=== PATIENT | female | born 1985 | race American Indian/Alaskan Native ===

== ENCOUNTER 2018-08-20 18:23 | Emergency (ER) | payer OTHER ==
[2018-08-20] MEDS ORDERED: Bacitracin Oint 1 GM U/D Packet TOP ONE (19:40)
[2018-08-20] MEDS ORDERED: Diphtheria,Pertussis(Acell),Tetanus Vaccine 0.5 ML SDV IM ONE (19:40)
[2018-08-20] MEDS ORDERED: Lidocaine 1% 30 ML SDV INJECT ONE (19:40)
--- NOTE | 2018-08-20 19:56 | EDM.PDOC ---
ED HPI GENERAL MEDICAL PROBLEM - General Chief Complaint: Laceration Stated Complaint: W/COMP - CUT TO RT FOREARM Time Seen by Provider: 08/20/18 19:40 Source of Information: Reports: Patient History Limitations: Reports: No Limitations - History of Present Illness INITIAL COMMENTS - FREE TEXT/NARRATIVE: This 32 yo female patient reports to the ED from work ([employer]) with a laceration to her right forearm. The patient reports she was grabbing a rag by a garbage when she believes a piece of broken glass cut her arm from the garbage. Onset: Today Duration: Minutes: Location: Reports: Upper Extremity, Right Severity: Mild Improves with: Reports: None Worsens with: Reports: None Associated Symptoms: Reports: No Other Symptoms - Related Data Allergies Allergy/AdvReac Type Severity Reaction Status Date / Time No Known Allergies Allergy Verified 08/20/18 18:54 Home Meds: Home Meds . [No Known Home Meds] 08/20/18 [History] Past Medical History - Past Surgical History HEENT Surgical History: Reports: Myringotomy w Tube(s) Social & Family History - Tobacco Use Smoking Status *Q: Never Smoker Second Hand Smoke Exposure: No - Caffeine Use Caffeine Use: Reports: Soda - Recreational Drug Use Recreational Drug Use: No ED ROS GENERAL - Review of Systems Review Of Systems: ROS reveals no pertinent complaints other than HPI. ED EXAM, SKIN/RASH Exam: See Below General Appearance: Alert, WD/WN, No Apparent Distress Eye Exam: Bilateral Eye: EOMI, PERRL Ears: Normal External Exam, Hearing Grossly Normal Nose: Normal Inspection Head: Atraumatic, Normocephalic Neck: Full Range of Motion Respiratory/Chest: No Respiratory Distress Cardiovascular: Normal Peripheral Pulses, Regular Rate, Rhythm (Female) Exam: Deferred Rectal (Female) Exam: Deferred Extremities: Normal Range of Motion, No Pedal Edema, Normal Capillary Refill, Other (laceratio to right forearm) Neurological: Alert, Oriented, CN II-XII Intact, Normal Cognition, Normal Gait Psychiatric: Normal Affect, Normal Mood Skin: Warm, Dry, Normal Color, No Rash Location, Skin: Upper Extremity, Right Characteristics: Linear Lymphatic: No Adenopathy ED SKIN PROCEDURES - Laceration/Wound Repair Right Distal Arm Lac/Wound length In cm: 2.0 Appearance: Subcutaneous Distal NVT: Neuro & Vascular Intact Anesthetic Type: Local Local Anesthesia - Lidocaine (Xylocaine): 1% Plain Local Anesthetic Volume: 3cc Skin Prep: Chlorhexidine (Hibiciens) Exploration/Debridement/Repair: Wound Explored, In a Bloodless Field, No Foreign Material Found Closed with: Sutures Suture Size: 4-0 # of Sutures: 7 Suture Type: Prolene, Interrupted, Simple Drain Placement: No Sterile Dressing Applied: Nurse Tetanus Status Addressed: Yes Complications: No Course - Vital Signs Last Recorded V/S: Last Vital Signs Temp 37.1 C 08/20/18 18:47 Pulse 86 08/20/18 18:47 Resp 16 08/20/18 18:47 BP 116/67 08/20/18 18:47 Pulse Ox 100 08/20/18 18:47 - Orders/Labs/Meds Orders: Active Orders 24 hr Category Date Time Status Vaccines to be Administered [RC] PER UNIT ROUTINE Care 08/20/18 19:40 Ordered Meds: Medications Discontinued Medications Generic Name Dose Route Start Last Admin Trade Name Freq PRN Reason Stop Dose Admin Bacitracin 1 dose 08/20/18 19:40 08/20/18 19:50 Bacitracin Oint 1 Gm TOP 08/20/18 19:41 1 dose ONETIME ONE Administration Diphtheria/Tetanus/Acell Pertussis 0.5 ml 08/20/18 19:40 08/20/18 19:49 Adacel IM 08/20/18 19:41 0.5 ml .ONCE ONE Administration Lidocaine HCl 30 ml 08/20/18 19:40 08/20/18 19:44 Xylocaine-Mpf 1% INJECT 08/20/18 19:41 30 ml ONETIME ONE Administration Departure - Departure Time of Disposition: 19:54 Disposition: Home, Self-Care 01 Condition: Fair Clinical Impression: Laceration of right forearm Qualifiers: Encounter type: initial encounter Qualified Code(s): S51.811A - Laceration without foreign body of right forearm, initial encounter - Discharge Information *PRESCRIPTION DRUG MONITORING PROGRAM REVIEWED*: Not Applicable *COPY OF PRESCRIPTION DRUG MONITORING REPORT IN PATIENT EMY: Not Applicable Instructions: Laceration Care, Adult, [id number] Forms: ED Department Discharge Care Plan Goals: The patient was advised of the examination results during the visit. The laceration margins were well approximated during the visit. The patient should keep the area clean and dry over the next 24 hours. The patient should have the sutures removed in 10-14 days by her primary facility. If the patient has any additional symptoms or concerns, the patient should either return to the emergency department or follow-up with his primary care facility. - My Orders Last 24 Hours: My Active Orders 08/20/18 19:40 Vaccines to be Administered [RC] PER UNIT ROUTINE - Assessment/Plan Last 24 Hours: My Active Orders 08/20/18 19:40 Vaccines to be Administered [RC] PER UNIT ROUTINE
== END 2018-08-20 19:59 | disposition home or self-care (01) ==
LOC: DL.ED 18:23
DX: S51.811A Laceration without foreign body of right forearm, initial encounter (principal); W25.XXXA Contact with sharp glass, initial encounter; Z23 Encounter for immunization
CPT/HCPCS: 12001; 90471; 90715; 99282